=== PATIENT | female | born 1985 | race Caucasian/White ===

== ENCOUNTER 2023-06-13 13:57 | Outpatient (CLI) | payer OTHER ==
[2023-06-13 15:00] LABS: BHCG - Serum Negative (NEGATIVE); Pregs Control Background? CLEAR/WHITE (CLR/WHITE); Pregs Control Bar Appear? YES (CONTROL BAR)
[2023-06-13 15:07] LABS: Hematocrit 40.4 % (34.9-44.5); Hemoglobin 13.3 g/dL (12.0-15.5); Mean Corpuscular HGB CONC 32.9 g/dL (32.0-36.0); Mean Corpuscular Hemoglobin 29.9 pg (27.0-33.0); Mean Corpuscular Volume 90.8 fl (81.6-98.3); Mean Platelet Volume 12.2 fl (7.4-10.4); Platelet Count 226 10x3/uL (150-450); RBC Distribution Width 13.2 % (11.5-14.5); Red Blood Cell (RBC) Count 4.45 10x6/uL (3.90-5.03); White Blood Cell (WBC) Count 7.6 10x3/uL (3.5-10.5)
== END 2023-06-13 13:58 | disposition home or self-care (01) ==
LOC: CSHLAB 13:57
PROVIDERS: ATTEND Orthopaedic Surgery Sports Medicine
DX: Z01.812 Encounter for preprocedural laboratory examination (principal); M23.92 Unspecified internal derangement of left knee
CPT/HCPCS: 84703; 85027

== ENCOUNTER 2023-06-15 06:09 | Day surgery (SDC) | payer OTHER ==
[2023-06-13 14:35] VITALS: BMI 29.7
[2023-06-15] MEDS ORDERED: Bupivacaine PF 0.5% 30 ML VIAL ONE (06:45)
[2023-06-15] MEDS ORDERED: Lidocaine 2% PF 5 ML VIAL ONE (06:59)
[2023-06-15] MEDS ORDERED: Dexamethasone 4 mg/ml Vial ONE (06:59)
[2023-06-15] MEDS ORDERED: PROPOFOL 40 ML ONE (07:00)
[2023-06-15] MEDS ORDERED: Midazolam HCl 2 mg/2 ml Vial ONE (07:00)
[2023-06-15] MEDS ORDERED: Fentanyl 250 MCG/5 ML VIAL ONE (07:00)
[2023-06-15] MEDS ORDERED: CEFAZOLIN 2 GM VIAL ONE (07:01)
[2023-06-15] MEDS ORDERED: EPINEPHrine 1 MG/ML AMP ONE (07:42)
[2023-06-15] MEDS ORDERED: HYDROcodone/Acetaminophen 5/325 mg Tablet ONE (08:51)
== END 2023-06-15 09:40 | disposition home or self-care (01) ==
LOC: CSHSDC 06:09
PROVIDERS: ATTEND Orthopaedic Surgery Sports Medicine
PROC: 0MNP4ZZ Release Left Knee Bursa and Ligament, Percutaneous Endoscopic Approach (ICD-10-PCS; principal; 2023-06-15)
DX: M24.19 Other articular cartilage disorders, other specified site (principal); F90.9 Attention-deficit hyperactivity disorder, unspecified type; F32.A Depression, unspecified; Z88.8 Allergy status to other drugs, medicaments and biological substances; Z91.012 Allergy to eggs; Z79.899 Other long term (current) drug therapy
CPT/HCPCS: J0171; J0665; J1100; J2001; J2250; J2704; J3010

== ENCOUNTER 2023-06-21 08:53 | Outpatient (CLI) | payer OTHER | END 2023-06-21 08:54 | disposition home or self-care (01) | LOC: CSHRAD 08:53 | PROVIDERS: ATTEND Neurological Surgery | DX: Q76.2 Congenital spondylolisthesis (principal) | CPT/HCPCS: 72100 ==